=== PATIENT | female | born 2000 | race African-American/Black ===

== ENCOUNTER 2018-05-31 01:11 | Observation (INO) ==
[2018-05-31 01:53] LABS: Bilirubin,Urine Negative (Negative); Blood,Urine Negative (Negative); Clarity,Urine Clear (Clear); Color,Urine Yellow (Yellow); Glucose,Urine (UA) Normal (Normal); Ketones,Urine Negative (Negative); Leukocyte Esterase,Urine Negative (Negative); Nitrite,Urine Negative (Negative); Protein,Urine Negative (Neg-Trace); Specific Gravity,Urine 1.016 (1.010-1.025); Urobilinogen,Urine Normal (Normal)
[2018-05-31 02:22] LABS: Amphetamine Screen,Urine Negative ng/mL (Cutoff=1000); Barbiturate Screen,Urine Negative ng/mL (Cutoff=200); Benzodiazepines Screen,Urine Negative ng/mL (Cutoff=200); Cannabinoid Screen,Urine Negative ng/mL (Cutoff = 50); Cocaine Screen,Urine Negative ng/mL (Cutoff= 300); Opiate Screen,Urine Negative ng/mL (Cutoff=300); Phencyclidine Screen,Urine Negative ng/mL (Cutoff=25)
--- NOTE | 2018-05-31 06:40 | Discharge Summary ---
Date of Encounter: 05/31/18 Time of Encounter: 05:03 - Discharge Diagnosis (1) 39 weeks gestation of Priority: Primary Status: Acute Comments: admitted for labor evaluation false labor SVE 4cm per RN no change after labor evaluation (2) NST (non-stress test) reactive on surveillance Priority: Secondary Status: Acute Comments: baseline 125 bpm moderate variability +15x15 accels no decels noted. Irregular contractions Cat. 1 tracing - Discharge Medications Home Medications: Acetaminophen [Tylenol] 500 mg PO Q6HR PRN #20 tablet 01/06/18 [Rx] Amoxicillin 875 mg PO BID #20 tablet 01/06/18 [Rx] Buprenorphine HCl 8 mg PO BID 01/06/18 [History] DiphenhydraMINE [Benadryl] 25 mg PO Q6HR PRN #20 capsule 01/06/18 [Rx] Multi Tablet 1 tab PO DAILY 01/06/18 [History] Amoxicillin/Clavulanate [Augmentin] 875 mg PO BIDWM #9 tablet 01/13/18 [Rx] Ondansetron ODT [Zofran ODT] 4 mg PO Q6H PRN #20 tab.rapdis 01/13/18 [Rx] Allergies/Adverse Reactions: 3 Allergy/AdvReac Type Severity Reaction Status Date / Time chlorpheniramine Allergy Palpitation Verified 01/06/18 18:59 [From Triaminic Cold and s Cough] dextromethorphan Allergy Palpitation Verified 01/06/18 18:59 [From Triaminic Cold and s Cough] pseudoephedrine Allergy Palpitation Verified 01/06/18 18:59 [From Triaminic Cold and s Cough] Data Procedures and tests throughout hospitalization: Laboratory Tests 05/31/18 05/31/18 01:40 01:40 Urine Color Yellow Urine Clarity Clear Urine pH 6.0 Ur Specific [place] 1.016 Urine Protein Negative Urine Glucose (UA) Normal Urine Ketones Negative Urine Blood Negative Urine Nitrite Negative Urine Bilirubin Negative Urine Urobilinogen Normal Ur Leukocyte Esterase Negative Ur Culture Indicated? NO Urine Opiates Screen Negative Ur Barbiturates Screen Negative Ur Phencyclidine Scrn Negative Ur Amphetamines Screen Negative U Benzodiazepines Scrn Negative Urine Cocaine Screen Negative U Marijuana (THC) Screen Negative Ur Drug Screen Interp See Below Labs on day of discharge: Labs from last 24 hours 05/31/18 05/31/18 01:40 01:40 Urine Color Yellow Urine Clarity Clear Urine pH 6.0 Ur Specific [place] 1.016 Urine Protein Negative Urine Glucose (UA) Normal Urine Ketones Negative Urine Blood Negative Urine Nitrite Negative Urine Bilirubin Negative Urine Urobilinogen Normal Ur Leukocyte Esterase Negative Ur Culture Indicated? NO Urine Opiates Screen Negative Ur Barbiturates Screen Negative Ur Phencyclidine Scrn Negative Ur Amphetamines Screen Negative U Benzodiazepines Scrn Negative Urine Cocaine Screen Negative U Marijuana (THC) Screen Negative Ur Drug Screen Interp See Below Date of admission: 05/31/18 01:11 Discharging clinician: Tanya Ballard Anticipated date of discharge: 05/31/18 - Patient Status Disposition: Home, Self-Care Condition: Good - Discharge Instructions Follow Up With: Madeleine Diehl MD [Partnered Physician] - - Diet and Activity Activity: increase activity as tolerated Diet: regular diet Hospital Course TEAM MANAGER Hospital course: Patient is a 18 y/o at 39 weeks presented to labor and delivery for contractions. Patient denied LOF or VB. Patient reported +FM. Time Attestation: Total time spent providing and/or coordinating discharge services: Time Spent: Less than 30 minutes Exam - Other Additional findings: Patient seen and assessed by RN. FHR 125 bpm moderate variability +15x15 accels no decels noted. Irregular contractions. Cat. 1 tracing. - VTE Reasons for not Prescribing Prophylaxis: Treatment not Indicated - Low risk for VTE
== END 2018-05-31 05:03 | disposition home or self-care (01) ==
LOC: 1NENULAB
PROVIDERS: ADMIT Advanced Practice Midwife; ATTEND Advanced Practice Midwife

== ENCOUNTER 2018-05-31 21:41 | Inpatient (IN) ==
[~2018-05-31 21:41] MED LIST: *HR* Nalbuphine 10 MG/ML AMPUL IVP PRN; Famotidine 20 MG/2 ML VIAL IVP PRN; Lidocaine 1% 20 ML MDV INFILT PRN; Naloxone 0.4 MG/ML INJ IVP PRN; Ondansetron 4 MG/2 ML VIAL IVP PRN
[2018-05-31] MEDS ORDERED: Ringers Solution, Lactated 1,000 ML IVC SCH (21:45)
--- NOTE | 2018-05-31 21:51 | OB/GYN History & Physical ---
Date of Encounter: 05/31/18 Time of Encounter: 21:44 Assessment and Plan (1) Spontaneous rupture of membranes Current visit: Yes Status: Acute admitted for delivery meconium stained fluid-nursery notified (2) complicated by subutex maintenance, antepartum Current visit: Yes Status: Acute Patient to continue dose as prescribed (3) Group B streptococcal carriage complicating Current visit: Yes Status: Acute Group B strep protocol (4) 39 weeks gestation of Current visit: No Status: Acute admitted for delivery History of Present Illness Chief complaint: SROM HPI: Ms. Gandhi is a 18 year old female at 39w3d presents to labor and delivery with complaints of leaking fluid. Patient reports water broke at 1999. Patient reports +FM along with feeling contractions. Patient is currently in Subutex program. Primary OB provider is Dr. Diehl. Blood type: A+ Rubella: Immune Hep B: Nonreactive GBS: Positive Past Med Surg Social Fam HX - Past Medical History Source: patient Medical history: asthma Psychiatric history: no psych history - Past Surgical History Surgical History: no surgical history - Social History Smoking Status: Never smoker Smokeless Tobacco Status: No Alcohol use: none Drug use: opiates - Family History Grandmother Adopted: No Family Member Ethnicity: Non- Living Status: Still Living Hx Family Cardiac Disorders: No Hx Family Respiratory Disorders: No Hx Family Cancer: Yes (breast cancer) Hx Family GI Disorders: No Hx Family Endocrine Disorder: Yes (diabetic) Hx Family Neuromuscular Disorders: No Hx Family Neurologic Disorders: No Hx Family Autoimmune Disorders: No Obstetrical History - Pregnancies : 1 Para: 0 Term: 0 : 0 Ab's: 0 Livin Medications and Allergies Buprenorphine HCl 16 mg PO DAILY 01/06/18 [History] Multi Tablet 1 tab PO DAILY 01/06/18 [History] 3 Allergy/AdvReac Type Severity Reaction Status Date / Time chlorpheniramine Allergy Palpitation Verified 01/06/18 18:59 [From Triaminic Cold and s Cough] dextromethorphan Allergy Palpitation Verified 01/06/18 18:59 [From Triaminic Cold and s Cough] pseudoephedrine Allergy Palpitation Verified 01/06/18 18:59 [From Triaminic Cold and s Cough] Review of System OB - Constitutional Constitutional ROS IM: no fever(s), no headache(s) - Cardiovascular Cardiovascular: no chest pain, no edema, no lightheadedness, no palpitations, no pedal edema, no syncope - Respiratory Respiratory: no cough, no dyspnea - Gastrointestinal Gastrointestinal: no abdominal pain, no cramping, no diarrhea, no heartburn, no nausea, no vomiting - Genitourinary Genitourinary: vaginal discharge (per HPI), no abnormal vaginal bleeding, no dysuria, no flank pain, no urinary frequency, no urinary hesitancy, no vaginal odor, no vaginal pruritis Exam - Constitutional Constitutional: well developed, well nourished, no acute distress, average body habitus - HEENT HEENT: Normocephaly, Mucus Membranes Moist - Neck Neck exam: full ROM, normal inspection, supple - Lungs Respiratory exam: CTAB - Cardiovascular Cardiovascular exam: RRR, +S1, +S2 - Abdomen Abdomen: Present: bowel sounds normal, gravid, non tender - Extremities Extremities exam: full ROM, normal capillary refill, normal inspection Deep Tendon Reflex Grade: 2+ Normal - Cervix Dilation: 5 (per RN) Effacement: 90 Station: -3 - Uterus Uterus exam: Present: normal size, normal contour - Anus/Rectum Anus/Rectum: Present: normal perianal skin - Comments Comments: FHR 145 bpm moderate variability contractions 2-3 min apart. Cat. 1 tracing. Results All other labs normal. - VTE Reasons for not Prescribing Prophylaxis: Treatment not Indicated - Low risk for VTE
[2018-05-31] MEDS ORDERED: Ringers Solution, Lactated 1,000 ML ONE (21:53)
[2018-05-31] MEDS ORDERED: Penicillin G Potassium 5,000,000 UNIT in 0.9 % Sodium Chloride Mini Bag 100 ML IVPB ONE (22:00)
[2018-05-31 22:21] LABS: Basophils % 0.2 %; Eosinophils # 0.1 K/mcL (0.0-0.6); Eosinophils % 0.2 %; Hematocrit 35.8 % (35.3-44.9); Hemoglobin 13.2 g/dL (11.5-15.4); Immature Granulocytes % 1.2 % (0-4); Lymphocytes # 1.4 K/mcL (0.6-4.6); Lymphocytes % 5.8 %; Mean Corpuscular HGB Conc 36.9 g/dL (31.6-35.5); Mean Corpuscular Hemoglobin 27.2 pg (28.0-33.3); Mean Corpuscular Volume 73.7 fL (83.0-100.0); Mean Platelet Volume 10.6 fL (9.4-12.4); Monocytes # 1.5 K/mcL (0.0-1.3); Monocytes % 6.4 %; Neutrophils # 20.3 K/mcL (1.6-8.9); Platelet Count 236 K/mcL (140-400); Red Blood Count 4.86 M/mcL (3.82-4.97); Red Cell Distribution Width 14.7 % (11.5-14.5); Segmented Neutrophils % 86.2 %
[2018-05-31] MEDS ORDERED: *HR* FentaNYL (PF) 100 MCG/2 ML VIAL EP ONE (23:36)
[2018-05-31] MEDS ORDERED: Bupivacaine-MPF 0.25% 10 ML VIAL EP ONE (23:36)
--- NOTE | 2018-05-31 23:36 | Anesthesia Evaluation PreOp ---
Date of Encounter: 05/31/18 Time of Encounter: 23:34 - Past History Planned Operation: [facility]LEY Cardiac History: Denies any Significant Hx Pulmonary History: Asthma PEDIATRIC NP History: Denies Any Significant HX Other Medical History: Denies Any Significant HX Anesthesia History: No Prior Anesthetic Complications (never had any procedure requiring GA or NA; denies family h/o GA complications) : Yes Alcohol Use: none Drug use: opiates Medications and Allergies Buprenorphine HCl 16 mg PO DAILY 01/06/18 [History] Multi Tablet 1 tab PO DAILY 01/06/18 [History] 3 Allergy/AdvReac Type Severity Reaction Status Date / Time chlorpheniramine Allergy Palpitation Verified 01/06/18 18:59 [From Triaminic Cold and s Cough] dextromethorphan Allergy Palpitation Verified 01/06/18 18:59 [From Triaminic Cold and s Cough] pseudoephedrine Allergy Palpitation Verified 01/06/18 18:59 [From Triaminic Cold and s Cough] - Meds/Allergy Pre-op Review Medications Reviewed: Yes Allergies Reviewed: Yes Beta Blockers on Current Med List: No Anesthesia Results - Labs 05/31/18 21:42 Anesthesia Exam 130/81, HR 84 Height: 1.7m Weight: 111kg NPO (# of Hours): solids >3 hours Pain Scale: 4 Pain Scale Used: Numeric (1 - 10) - HEENT Pupil (Motor): Pupils equal Mallampati: II Teeth: Normal Oral Opening: Greater than 3 - PEDIATRIC NP LOC: Oriented PEDIATRIC NP Motor: Normal RUE, Normal LUE, Normal RLE, Normal LLE, Normal Face PEDIATRIC NP Sensory: Normal: RUE, LUE, RLE, LLE, Face - Cardiac Rhythm: Regular Murmur: None - Pulmonary Breath Sounds: bilateral Clear Respiratory Effort: Symmetrical Anesthesia Assess/Plan ASA Score: 2 Modified [place] Scale for Level of Consciousness: Anixous, agitated or restless Anesthetic Plan: Regional Autologous Blood: No Monitoring Plan: Standard Monitors Recovery Plan: Other
[2018-05-31] MEDS ORDERED: Epidural Premix (fent/bupiv) 110 ML EP SCH (23:45)
[2018-06-01 00:26] LABS: Amphetamine Screen,Urine Negative ng/mL (Cutoff=1000); Barbiturate Screen,Urine Negative ng/mL (Cutoff=200); Benzodiazepines Screen,Urine Negative ng/mL (Cutoff=200); Cannabinoid Screen,Urine Negative ng/mL (Cutoff = 50); Cocaine Screen,Urine Negative ng/mL (Cutoff= 300); Opiate Screen,Urine Negative ng/mL (Cutoff=300); Phencyclidine Screen,Urine Negative ng/mL (Cutoff=25)
[2018-06-01] MEDS: Gentamicin 160 MG in 0.9 % Sodium Chloride 100 ML IVPB SCH ×2 (01:13→12:12)
[2018-06-01] MEDS ORDERED: Oxytocin 20 units/ LR 1000 mL 20 UNIT/1,000 ML BAG IVC SCH ×2 (02:00→16:09)
[2018-06-01] MEDS: Penicillin G Potassium 2,500,000 UNIT in 0.9 % Sodium Chloride 100 ML IVPB SCH ×2 (02:33→06:56)
[2018-06-01] MEDS ORDERED: Bupivacaine-MPF 0.25% 10 ML VIAL ONE (04:14)
[2018-06-01] MEDS ORDERED: Lidocaine -MPF 2% 5 ML VIAL ONE (04:14)
[2018-06-01] MEDS ORDERED: *HR* FentaNYL (PF) 100 MCG/2 ML VIAL ONE (04:14)
--- NOTE | 2018-06-01 05:01 | Anesthesia Procedures ---
Date of Encounter: 06/01/18 Time of Encounter: 04:21 Procedures: Anesthesia - Epidural/Spinal Patient ID/Chart reviewed: Yes Patient examined: Yes OB Eval: Gestational age: 39 weeks 4 days OB Eval: : 1 OB Eval: Hx Para: 0 OB Eval: Dilated at (cm): 5 OB Eval: Contractions: Non-stressed pattern Consent Obtained: Yes Supplemental Oxygen: None/Room Air Site Prep: Aseptic Technique, Sterile prep and drape, Povidone-Iodine 1% Patient position: upright Local Anesthetic: Lidocaine 1% Amount of Local Anesthetic used: 5 Touhy Needle Gauge: 18 Touhy Needle Depth (cm): 8 Catheter Depth at Skin (cm): 13 Test Dose (1.5% Lido + Epi): Volume given (mls): 5 Test Dose Result: Negative Loading Dose: 0.25% Marcaine (mls): 5 Loading Dose: Fentanyl (mcg): 100 Loading Dose Administered: Thru Catheter Infusion Med: 0.125% Bupivacaine w/ 2 mcg/ml Fentanyl Infusion Rate (mls/hr): [address]: Tegaderm, Tape Interspace Used: L3-L4 Loss of Resistance (SHAE): Yes Blood: No CSF: No Paresthesia: No Procedure: successful on 3rd attempt at same interspace; patient tolerated procedure well; VSS Vitals + FHT's: Please see RN electronic records
[2018-06-01] MEDS ORDERED: Metoclopramide 10 MG/2 ML VIAL IVP PRN (07:32)
[2018-06-01] MEDS ORDERED: 0.9 % Sodium Chloride 1,000 ML ONE (08:12)
--- NOTE | 2018-06-01 08:13 | OB Labor Progress Note ---
Date of Encounter: 06/01/18 Time of Encounter: 08:10 Labor Progress Note - Subjective Subjective: patient comfortable with epidural, was having decelerations pitocin is off and O2 placed - Cervix Cervix: 7/100/0 forbag noted ruptured at this time - Heart Tones Heart Tones: FHT's 140 decreased variablity noted with occ decelertions noted - [place]: IUPC placed contractions every 2 min, - Plan Plan: will start amnioinfusion 300cc bolus the 125cc/hr
[2018-06-01] MEDS ORDERED: miSOPROStol 100 MCG TABLET PO ONE (10:13)
[2018-06-01] MEDS ORDERED: Methylergonovine 0.2 MG/ML AMPUL IM ONE (10:13)
[2018-06-01] MEDS ORDERED: *HR* Ropivacaine/PF 0.2% 20 ML VIAL ONE (10:59)
[2018-06-01] MEDS ORDERED: Measles/Mumps/Rubella Vacc 0.5 ML VIAL SQ PRN (16:09)
--- NOTE | 2018-06-01 17:17 | OB/GYN Procedure Note ---
Delivery - Delivery Date: 06/01/18 Provider: Dorian Quiñones Intrapartum events: meconium, foul smelling fluid Delivery augmentation: pitocin Delivery monitor: external FHT, external uterine, internal uterine Anesthesia: epidural Quantitated Blood Loss: 400 - (s) A Delivery Date: 06/01/18 Delivery Time: 14:02 Presentation: vertex Position: TORIBIO Gender: Male Viability: Viable Pounds: 7 Ounces: 4 Weight Gram: 3.29 kg at 1 minute: 8 at 5 mins: 9 Shoulder Dystocia: not encountered Specimens collected: cord blood Placenta: spontaneous, retained Cord: 3 umbilical vessels - Repair Laceration Description: Periurethral, Perineal - 1st Degree - Complications Delivery complications: none Delivery comments: Patient is a 18-year-old 1 para 0 39-3/7 weeks who presented to labor and delivery complaining of spontaneous rupture membranes at approximately 2000 on 05/31. Patient states that she was walking home had a big gush of fluid upon arrival to labor and delivery patient was noted to be grossly ruptured thick meconium patient has been 5 cm for some time and was 5 cm on admission patient is GBS positive and was started on antibiotics patient's white count came back elevated at 23,000 with a left shift she did get one dose of gentamicin. Patient was started on Pitocin was started having some late decelerations with decreased variability the Pitocin was turned off. Patient was examined was 6-7 cm and had a fore bag this was ruptured at this time and this is all that was needed to finally put her into full labor patient progressed slowly with minimal changes and variability became complete and pushed for approximately 20- 30 minutes delivering a viable male in left occiput posterior presentation at 1402. There was no nuchal cord, there was thick meconium and the infant was bulb suctioned on the abdomen. Apgars were 8 at 1 minute, 9 at 5 minutes, infant weight 7 lbs. 4 oz. placenta delivered spontaneously with a three-vessel cord she was noted to have trailing membranes an attempt to remove these they just were very easily suggestive of an infection. He did require a bedside curettage to get all membranes out they would just not come out just with a ring forcept. Dj Instructor was Dr. Quiñones human resource assistant Dieter Shin OMS3 anesthesia epidural estimated blood loss 400 mL. We did have some uterine atony did require 0.2 g of Methergine IM and 600 g of Cytotec rectally to get bleeding under control. Patient had a first-degree perineal laceration and a left periurethral repaired with 4-0 Vicryl in usual fashion. Cervix and vagina was visualized intact. Good hemostasis was noted patient will be started on triple antibiotics ampicillin, Gentamycin, clindamycin, and repeat CBC in the morning - Disposition Mom disposition: stable in LDR disposition: stable in LDR
[2018-06-01] MEDS: Ibuprofen 600 MG TABLET PO PRN (17:18)
[2018-06-01] MEDS: Clindamycin 900 MG/50 ML 900 MG/50 ML IV.SOLN IVPB SCH (17:19)
[2018-06-01] MEDS: Ampicillin 2 GM in 0.9 % Sodium Chloride Mini Bag 100 ML IVPB SCH (18:35)
[2018-06-01] MEDS ORDERED: Gentamicin 80 MG in 0.9 % Sodium Chloride 100 ML IVPB ONE (20:00)
[2018-06-02] MEDS: Ampicillin 2 GM in 0.9 % Sodium Chloride Mini Bag 100 ML IVPB SCH ×5 (00:17→23:26)
[2018-06-02] MEDS: Clindamycin 900 MG/50 ML 900 MG/50 ML IV.SOLN IVPB SCH ×3 (02:36→18:40)
[2018-06-02] MEDS: Acetaminophen 325 MG TABLET PO PRN ×2 (02:41→23:26)
[2018-06-02] MEDS ORDERED: Benzocaine/Menthol 56 GM AEROSOL SPRAY TP PRN (04:32)
[2018-06-02] MEDS ORDERED: Ringers Solution, Lactated 1,000 ML ONE ×2 (05:07→16:17)
[2018-06-02 07:01] LABS: Eosinophils % 0.7 %; Mean Platelet Volume 10.4 fL (9.4-12.4)
[2018-06-02 07:02] LABS: Basophils # 0.1 K/mcL (0.0-0.2); Basophils % 0.2 %; Eosinophils # 0.2 K/mcL (0.0-0.6); Hemoglobin 10.9 g/dL (11.5-15.4); Immature Granulocytes % 1.2 % (0-4); Lymphocytes % 9.7 %; Mean Corpuscular HGB Conc 36.3 g/dL (31.6-35.5); Mean Corpuscular Volume 74.4 fL (83.0-100.0); Monocytes # 2.4 K/mcL (0.0-1.3); Monocytes % 8.7 %; Neutrophils # 21.6 K/mcL (1.6-8.9); Platelet Count 190 K/mcL (140-400); Red Blood Count 4.03 M/mcL (3.82-4.97); Red Cell Distribution Width 14.7 % (11.5-14.5); Segmented Neutrophils % 79.5 %
[2018-06-02 07:04] LABS: Lymphocytes # 2.6 K/mcL (0.6-4.6)
[2018-06-02 07:26] LABS: Platelet Estimate Normal (Normal)
[2018-06-02] MEDS: Ibuprofen 600 MG TABLET PO PRN (08:04)
[2018-06-02] MEDS: Prenatal Vit/FA 1 EACH TABLET PO SCH (08:05)
[2018-06-02] MEDS: *HR* Buprenorphine HCl 8 MG TAB.SUBL SL SCH (08:06)
--- NOTE | 2018-06-02 08:31 | OB/GYN Progress Note ---
Date of Encounter: 06/02/18 Time of Encounter: 08:28 - Assessment and Plan (1) Vaginal delivery Current Visit: Yes Status: Acute Continue routine care Ice to perineum when necessary Sitz baths when necessary Dermoplast to perineum when necessary Anticipate discharge home tomorrow (2) Breast feeding status of mother Current Visit: Yes Status: Acute consult (3) Chorioamnionitis, delivered, current hospitalization Current Visit: Yes Status: Acute Patient will remain inpatient for 1 more day for IV antibiotics Subjective - Subjective Principal diagnosis: s/p Interval history: Feeling well. Out of bed without dizziness. Voiding independently. Tolerating regular diet. Lochia light. Some perineal discomfort-using ice packs. Cramping minimal, using ibuprofen. Breast-feeding and bottle feeding. Some nipple soreness. Passing flatus, no BM yet. Patient reports: appetite normal, voiding normally, pain well controlled, ambulating normally : doing well, nursing well, bottle feeding Objective - Latest Vital Signs Latest vital signs: Vital Signs Temp Pulse Resp BP Pulse Ox 06/02/18 08:15 16 06/02/18 05:15 97.9 F 88 16 121/75 98 06/02/18 00:00 98.2 F 84 16 113/69 98 06/01/18 19:55 98.6 F 88 16 128/73 98 06/01/18 18:42 98.3 F 94 16 115/76 98 06/01/18 18:38 98.3 F 94 16 115/76 98 06/01/18 17:29 98.9 F 89 16 116/73 98 06/01/18 17:27 98.9 F 89 16 116/73 98 06/01/18 16:43 98.7 F 79 14 126/81 98 06/01/18 16:30 16 Intake and Output 06/01/18 06/02/18 06/02/18 23:59 07:59 15:59 Intake Total 950 / 950 100 / 100 Output Total 1000 / 1000 2400 / 2400 Balance -50 / -50 -2300 / -2300 Intake: IV Fluids 150 / 150 100 / 100 Ampicillin 2 GM In 0.9 % Sodium 100 / 100 100 / 100 Chloride (Mini-Bag +) 100 ML @ 200 mls/hr IVPB Q6HR [facility] Rx#: [id number] Cleocin Premix 900 MG/50 ML 900 50 / 50 mg In 50 ml @ 50 mls/hr IVPB Q8HR [facility] Rx#:[id number] Oral 800 / 800 Output: Urine 1000 / 1000 2400 / 2400 Other: Weight 108.5 kg 105.551 kg Patient Weight 06/02/18 23:59 Weight 105.551 kg - Exam Lungs: bilateral: normal Chest: Normal S1, Normal S2 Extremities: Present: normal Abdomen: Present: normal appearance, soft Uterus: Present: normal, firm Uterus Position: At Umbilicus, Midline Comments: Breasts: Nipples intact without erythema; breasts soft, nontender. - Labs Labs: Laboratory Results - last 24 hr 06/02/18 06:50 WBC 27.2 H RBC 4.03 Hgb 10.9 L D Hct 30.0 L MCV 74.4 L MCH 27.0 L MCHC 36.3 H RDW 14.7 H Plt Count 190 MPV 10.4 Immature Gran % 1.2 Seg Neutrophils % 79.5 Lymphocytes % 9.7 Monocytes % 8.7 Eosinophils % 0.7 Basophils % 0.2 Neutrophils # 21.6 H Lymphocytes # 2.6 Monocytes # 2.4 H Eosinophils # 0.2 Basophils # 0.1 Platelet Estimate Normal
[2018-06-02] MEDS ORDERED: Ondansetron 4 MG/2 ML VIAL IVP PRN (08:36)
[2018-06-02] MEDS ORDERED: Ondansetron 4 MG/2 ML VIAL ONE (09:31)
[2018-06-02] MEDS ORDERED: Gentamicin 80 MG in 0.9 % Sodium Chloride 100 ML IVPB SCH (10:00)
[2018-06-02 15:31] LABS: BUN/Creatinine Ratio 14 (6-26); Blood Urea Nitrogen 8 mg/dL (6-20); eGFR For Non-African Americans > 60 (> 60)
[2018-06-02] MEDS: Gentamicin 120 MG in 0.9 % Sodium Chloride 100 ML IVPB SCH (19:50)
[2018-06-03] MEDS: Clindamycin 900 MG/50 ML 900 MG/50 ML IV.SOLN IVPB SCH (00:10)
[2018-06-03] MEDS: Gentamicin 120 MG in 0.9 % Sodium Chloride 100 ML IVPB SCH (01:02)
[2018-06-03] MEDS: Ampicillin 2 GM in 0.9 % Sodium Chloride Mini Bag 100 ML IVPB SCH (05:23)
[2018-06-03 08:17] VITALS: BP 116/78
[2018-06-03] MEDS: Prenatal Vit/FA 1 EACH TABLET PO SCH (09:11)
[2018-06-03] MEDS: *HR* Buprenorphine HCl 8 MG TAB.SUBL SL SCH ×2 (09:11→09:15)
[2018-06-03 09:44] LABS: Basophils # 0.1 K/mcL (0.0-0.2); Basophils % 0.3 %; Eosinophils # 0.3 K/mcL (0.0-0.6); Eosinophils % 1.6 %; Hematocrit 30.5 % (35.3-44.9); Hemoglobin 11.2 g/dL (11.5-15.4); Immature Granulocytes % 2.1 % (0-4); Lymphocytes # 2.4 K/mcL (0.6-4.6); Lymphocytes % 13.5 %; Mean Corpuscular HGB Conc 36.7 g/dL (31.6-35.5); Mean Corpuscular Hemoglobin 27.4 pg (28.0-33.3); Mean Corpuscular Volume 74.6 fL (83.0-100.0); Mean Platelet Volume 10.5 fL (9.4-12.4); Monocytes # 1.2 K/mcL (0.0-1.3); Neutrophils # 13.4 K/mcL (1.6-8.9); Platelet Count 225 K/mcL (140-400); Red Blood Count 4.09 M/mcL (3.82-4.97); Red Cell Distribution Width 14.6 % (11.5-14.5); Segmented Neutrophils % 75.5 %
--- NOTE | 2018-06-03 12:58 | Discharge Summary ---
Date of Encounter: 06/03/18 Time of Encounter: 12:56 - Discharge Diagnosis (1) Breast feeding status of mother Priority: Secondary Status: Acute (2) Chorioamnionitis, delivered, current hospitalization Priority: Secondary Status: Acute Comments: Pt has remained afebrile. WBC's trending down. Plan to discharge home with PO antibiotics. POC per Dr. Diehl. (3) complicated by subutex maintenance, antepartum Priority: Secondary Status: Acute Comments: continue subutex (4) Vaginal delivery Priority: Primary Status: Acute Comments: Pt meeting all milestones. She reports feeling well today. No complaints. - Discharge Medications Prescriptions: Ibuprofen [Motrin] 600 mg PO Q6HR PRN #30 tablet PRN Reason: Cramping Azithromycin 500 mg PO DAILY #7 tablet Breast Pump [BREAST PUMP] 1 each .ROUTE AD #1 each Cephalexin [Keflex] 500 mg PO BID #14 capsule Docusate [Colace] 100 mg PO BID #60 capsule Home Medications: Buprenorphine HCl 16 mg PO DAILY 01/06/18 [History] Multi Tablet 1 tab PO DAILY 01/06/18 [History] Azithromycin 500 mg PO DAILY #7 tablet 06/03/18 [Rx] Benzocaine/Menthol [place] [Dermoplast [place]] 1 appl TP QID PRN aerosol 06/03/18 [Rx] Breast Pump [BREAST PUMP] 1 each .ROUTE AD #1 each 06/03/18 [Rx] Cephalexin [Keflex] 500 mg PO BID #14 capsule 06/03/18 [Rx] Docusate [Colace] 100 mg PO BID #60 capsule 06/03/18 [Rx] Ibuprofen [Motrin] 600 mg PO Q6HR PRN #30 tablet 06/03/18 [Rx] Allergies/Adverse Reactions: 3 Allergy/AdvReac Type Severity Reaction Status Date / Time chlorpheniramine Allergy Palpitation Verified 01/06/18 18:59 [From Triaminic Cold and s Cough] dextromethorphan Allergy Palpitation Verified 01/06/18 18:59 [From Triaminic Cold and s Cough] pseudoephedrine Allergy Palpitation Verified 01/06/18 18:59 [From Triaminic Cold and s Cough] Data Procedures and tests throughout hospitalization: Laboratory Tests 08/12/18 08/12/18 08/14/18 21:42 23:40 06:50 WBC 23.6 H 27.2 H RBC 4.86 4.03 Hgb 13.2 10.9 L D Hct 35.8 30.0 L MCV 73.7 L 74.4 L MCH 27.2 L 27.0 L MCHC 36.9 H 36.3 H RDW 14.7 H 14.7 H Plt Count 236 190 MPV 10.6 10.4 Immature Gran % 1.2 1.2 Seg Neutrophils % 86.2 79.5 Lymphocytes % 5.8 9.7 Monocytes % 6.4 8.7 Eosinophils % 0.2 0.7 Basophils % 0.2 0.2 Neutrophils # 20.3 H 21.6 H Lymphocytes # 1.4 2.6 Monocytes # 1.5 H 2.4 H Eosinophils # 0.1 0.2 Basophils # 0.0 0.1 Platelet Estimate Normal BUN Creatinine Est GFR ( Amer) Est GFR (Non-Af Amer) BUN/Creatinine Ratio Gentamicin Peak Urine Opiates Screen Negative Ur Barbiturates Screen Negative Ur Phencyclidine Scrn Negative Ur Amphetamines Screen Negative U Benzodiazepines Scrn Negative Urine Cocaine Screen Negative U Marijuana (THC) Screen Negative Ur Drug Screen Interp See Below 06/02/18 06/03/18 06/03/18 14:20 02:14 07:25 WBC 17.8 H RBC 4.09 Hgb 11.2 L Hct 30.5 L MCV 74.6 L MCH 27.4 L MCHC 36.7 H RDW 14.6 H Plt Count 225 MPV 10.5 Immature Gran % 2.1 Seg Neutrophils % 75.5 Lymphocytes % 13.5 Monocytes % 7.0 Eosinophils % 1.6 Basophils % 0.3 Neutrophils # 13.4 H Lymphocytes # 2.4 Monocytes # 1.2 Eosinophils # 0.3 Basophils # 0.1 Platelet Estimate BUN 8 Creatinine 0.58 L Est GFR ( Amer) > 60 Est GFR (Non-Af Amer) > 60 BUN/Creatinine Ratio 14 Gentamicin Peak 7.2 Urine Opiates Screen Ur Barbiturates Screen Ur Phencyclidine Scrn Ur Amphetamines Screen U Benzodiazepines Scrn Urine Cocaine Screen U Marijuana (THC) Screen Ur Drug Screen Interp Labs on day of discharge: Labs from last 24 hours 06/03/18 06/03/18 06/02/18 07:25 02:14 14:20 WBC 17.8 H RBC 4.09 Hgb 11.2 L Hct 30.5 L MCV 74.6 L MCH 27.4 L MCHC 36.7 H RDW 14.6 H Plt Count 225 MPV 10.5 Immature Gran % 2.1 Seg Neutrophils % 75.5 Lymphocytes % 13.5 Monocytes % 7.0 Eosinophils % 1.6 Basophils % 0.3 Neutrophils # 13.4 H Lymphocytes # 2.4 Monocytes # 1.2 Eosinophils # 0.3 Basophils # 0.1 BUN 8 Creatinine 0.58 L Est GFR ( Amer) > 60 Est GFR (Non-Af Amer) > 60 BUN/Creatinine Ratio 14 Gentamicin Peak 7.2 Preliminary micro results at discharge 06/01/18 14:02 Placental Culture - Preliminary Placenta No growth. Date of admission: 05/31/18 21:41 Primary care physician: PCP CHARANJIT Consults: 06/01/18 16:09 Consult to Hide And Skin Processing Worker [CONS] Routine Comment: Vaginal delivery, consult needed Consult to Rubber Goods Assembler [CONS] Routine Reason for SW Consult: in group Discharging clinician: Ely Horn Anticipated date of discharge: 06/03/18 - Patient Status Disposition: Home, Self-Care Condition: Good Functional capacity at discharge: independent ambulation Overall status at discharge: patient is progressing back to baseline - Discharge Instructions Follow Up With: CHARANJIT,PCP [Primary Care Provider] - Dorian Quiñones, [Partnered Physician] - - Diet and Activity Activity: increase activity as tolerated Diet: regular diet Hospital Course Reason for admission: active labor Delivery: Episiotomy: none Laceration: 1st degree Other procedures: none complications: none Discharge diagnosis: IUP at term delivered baby: male Hospital course: - Delivery Date: 06/01/18 Provider: Dorian Quiñones Intrapartum events: meconium, foul smelling fluid Delivery augmentation: pitocin Delivery monitor: external FHT, external uterine, internal uterine Anesthesia: epidural Quantitated Blood Loss: 400 - Infant (s) A Delivery Date: 06/01/18 Infant Delivery Time: 14:02 Presentation: vertex Position: TORIBIO Gender: Male Viability: Viable Pounds: 7 Ounces: 4 Weight Gram: 3.29 kg at 1 minute: 8 at 5 mins: 9 Shoulder Dystocia: not encountered Specimens collected: cord blood Placenta: spontaneous, retained Cord: 3 umbilical vessels - Repair Laceration Description: Periurethral, Perineal - 1st Degree - Complications Delivery complications: none - Disposition Mom disposition: home PPD2, home on keflex and zithromax for chorioamnionitis disposition: home with mother, Time Attestation: Total time spent providing and/or coordinating discharge services: Time Spent: Less than 30 minutes Exam - Constitutional Vitals: Temp Pulse Resp BP Pulse Ox 97.6 F 76 18 116/78 100 06/03/18 08:17 06/03/18 08:17 06/03/18 08:30 06/03/18 08:17 06/03/18 08:17 General appearance IM: A&O X 3 - Respiratory Respiratory exam: Present: CTAB - Cardiovascular Cardiovascular exam IM: Present: RRR - GI/Abdominal GI/Abdominal exam IM: soft - Uterine Tone: Firm Uterus Position: 1 Finger Below Umbilicus - Extremities Exam Extremities exam IM: Present: pedal edema (mild bilaterally) - Neurological Exam Neurological exam: normal gait - Psychiatric Additional comments: reports good mood
[2018-06-03] MEDS ORDERED: Aminoglycoside Consult 1 EACH MC ONE (13:29)
== END 2018-06-03 13:30 | disposition home or self-care (01) | DRG 560 ==
LOC: 1NENULAB → 1NENUOBS 06-01 16:05
PROVIDERS: ADMIT Advanced Practice Midwife; ATTEND Advanced Practice Midwife